=== PATIENT | male | born 1940 | race Caucasian/White ===

== ENCOUNTER 2021-09-21 12:15 | Emergency (ER) | payer MEDICARE, OTHER, SELFPAY ==
[2021-09-21 12:16] VITALS: BP 146/88; PULSE 112; RESP 16; TEMP 36.2; O2SAT 99; BMI 20.9
--- NOTE | 2021-09-21 13:15 | EX.ED.DYSGE1 ---
HPI History of Present Illness Chief Complaint: Abn Labs Detail of Chief Complaint: Low magnesium Informant: patient Narrative Narrative: Patient presents to the emergency department concern for low magnesium. Patient states he had blood work the other day that showed a magnesium of 0.8. He was advised by his cancer specialist to come to the emergency department to get a IV magnesium infusion. Patient states he receives and infusion of chemotherapy every 2 weeks that is known to lower magnesium and he receives magnesium infusion at the time of the chemotherapy. Patient otherwise has no complaints. He has had no muscle spasms or nausea or vomiting or abdominal pain or palpitations. Patient denies recent illness. Patient being treated for colon cancer. [facility] Medical History (Updated 09/21/21 @ 15:[address] Nessa Molina, ) GERD (gastroesophageal reflux disease) Malignant neoplasm of ascending colon Microcytic anemia Neuropathy Situational anxiety Home Medications Omeprazole [Prilosec] 40 mg PO DAILY 10/03/20 [History Last Taken Unknown] alogliptin 25 mg PO DAILY 10/03/20 [History Last Taken Unknown] amlodipine 10 mg PO DAILY 10/03/20 [History Last Taken Unknown] benazepril 20 mg PO DAILY 10/03/20 [History Last Taken Unknown] glimepiride 4 mg PO DAILY 10/03/20 [History Last Taken Unknown] lorazepam 1 mg PO DAILY 10/03/20 [History Last Taken Unknown] metformin 1,000 mg PO DAILY 10/03/20 [History Last Taken Unknown] ondansetron HCl 8 mg PO Q8H PRN PRN 10/11/20 [History Last Taken Unknown] Allergy/AdvReac Type Severity Reaction Status Date / Time oxaliplatin Allergy Shortness Verified 09/21/21 12:18 of breath Surgical History History of colectomy Social History Smoking Status: Never smoker ROS ROS ED Constitutional Constitutional ED: Reports systems reviewed and no addt'l complaints, except as documented; Denies body ache(s), change in weight or chills Eyes Eyes: Denies acute decrease in peripheral vision, change in vision, double vision or loss of vision ENT ENT ED: Reports none; Denies ear pain, lip swelling, loss taste/smell, neck pain, otalgia or sore throat Cardiovascular Cardiovascular: Reports none; Denies abdominal pain, chest pain with activity, leg edema, lightheadedness, palpitations, rapid heart rate or syncope Respiratory/Chest Respiratory/Chest: Reports none; Denies change in mental status, dry cough, dyspnea, hemoptysis, shortness of breath at rest or shortness of breath with exertion Gastrointestinal Gastrointestinal: Reports none; Denies abdominal pain, change in stool character, diarrhea, hematemesis, hematochezia, melena, rectal bleeding or vomiting Genitourinary Genitourinary ED: Reports none; Denies abdominal discomfort, anuria, dysuria, genital pain or polyuria Musculoskeletal Musculoskeletal: Reports none; Denies arthralgias, back pain, difficulty walking, extremity pain, muscle weakness or myalgias Integumentary Reports none; Denies abscess or rash Neurologic Neurologic: Reports none; Denies abnormal gait, confusion, focal weakness, frequent falls, headache(s), loss of vision, numbness, paresthesias, radicular pain, vertigo or weakness Psychiatric Psychiatric: Reports systems reviewed and no addt'l complaints, except as documented and none; Denies behavioral changes, confusion, difficulty concentrating, hallucinations, suicidal ideation, tactile hallucinations or visual hallucinations Endocrine Endocrinology: Denies none, cold intolerance, excessive sweating, fatigue or heat intolerance Hematologic/Lymphatic Hematologic/Lymphatic: Reports none; Denies anemia, easy bleeding or easy bruising Allergic/Immunologic Allergic/Immunologic ED: Denies as per HPI, none, lip swelling, mouth swelling, throat swelling, tongue swelling or hives EXAM Physical Exam Const Vital Signs: 09/21/21 12:16 09/21/21 12:55 09/21/21 14:28 Temperature 97.2 F L Temperature Source Temporal Pulse Rate 112 H 69 Respiratory Rate 16 15 Respiratory Effort Normal Non-Labored Respiratory Pattern Normal Blood Pressure 146/88 H 139/73 H Blood Pressure Mean 107 95 Pulse Ox 99 96 Oxygen Delivery Method Room Air Room Air Positive well nourished and well developed General Appearance ED: well developed and NAD HEENT Reports TM's clear and moist mucous membranes normocephalic and atraumatic; Negative for trauma or tenderness Tympanic Membrane ED: Yes TM's clear Eyes PERRL and EOMs intact bilaterally General Eye ED: Negative for pale conjunctiva or scleral icterus Neck no lymphadenopathy, supple and no JVD General: Negative for tenderness Chest Wall inspection of chest normal and palpation of chest normal Chest: Negative for tenderness Resp normal respiratory effort and clear to auscultation bilaterally Effort and Inspection: Negative for respiratory distress or pain with movement Auscultation: Negative for rhonchi, wheezes or diminished lung sounds Cardio regular rate, regular rhythm, S1 normal heart sound, S2 normal heart sound and no murmurs Peripheral Pulses: pulses 2+ throughout GI normal to inspection, nondistended, normoactive bowel sounds, soft to palpation, non-tender, non-distended and no masses Back/Spine no CVA tenderness and no thoracic nor lumbar tenderness Extremity normal to inspection General Extremety ED: Negative for edema General Extremity: Negative for edema Neuro oriented x3, CN's II-XII intact bilaterally, no sensory deficits noted and gait normal Sensorium / Orientation: awake, alert, oriented to person, oriented to place and oriented to time Motor Exam: strength 5/5 throughout and strength abnormal Psych mental status grossly normal Skin no rashes or lesions noted and no wounds MDM MDM MDM Narrative Medical decision making narrative: IV line established on arrival. Patient's magnesium noted to be 1.2. He was ordered 2 g of magnesium IV. Patient will be discharged to home and advised to follow-up with his primary care physician or oncologist to determine if oral magnesium would be indicated going forward as he continues his chemotherapy. Patient has been asymptomatic. Patient advised to return if palpitations, muscle cramping, vomiting or diarrhea, or condition should worsen anyway. Lab Data Labs: Laboratory Results - last 24 hr 09/21/21 13:30 Sodium 143 Potassium 3.6 Chloride 108 H Carbon Dioxide 26.0 Anion Gap 9 BUN 13 Creatinine 0.94 Estim Creat Clear Calc 59.85 Est GFR (MDRD) Af Amer 100 Est GFR (MDRD) Non-Af 82 BUN/Creatinine Ratio 13.8 Glucose 156 H Calcium 8.6 Magnesium 1.2 L Discharge Plan Triage Chief Complaint: Abn Labs ED Provider: Nessa Molina Dx/Rx/DC Orders Clinical Impression: Hypomagnesemia Instructions: Discharge Instructions for ... Prescriptions: No Action amlodipine 10 MG tablet 10 mg PO DAILY RF: 0 glimepiride 4 MG tablet 4 mg PO DAILY RF: 0 benazepril 20 MG tablet 20 mg PO DAILY RF: 0 lorazepam 1 MG tablet 1 mg PO DAILY RF: 0 metformin 1,000 MG tablet extended release 24hr 1,000 mg PO DAILY RF: 0 alogliptin 25 MG tablet 25 mg PO DAILY RF: 0 Omeprazole [Prilosec] 40 MG capsule 40 mg PO DAILY RF: 0 ondansetron HCl 8 MG tablet 8 mg PO Q8H PRN PRN (Reason: Nausea) RF: 0 Referrals: ROSALINDA ROB [Other] Activity Restrictions/Additional Instructions: Follow-up with primary care physician or oncologist to determine if oral magnesium would be indicated going forward as you continue your chemotherapy. Disposition Disposition: Home, Self Care
[2021-09-21 14:04] LABS: Anion Gap 9 (5-15); BUN 13 mg/dL (7-18); BUN/Creat Ratio 13.8 RATIO (10-20); Calcium,Total 8.6 mg/dL (8.5-10.1); Chloride 108 mmol/L (98-107); Creatinine, Serum 0.94 mg/dL (0.70-1.30); EST Glomerular Filtration Rate 82 mL/min (>60); Est Glom Filt Rate - Afr Amer 100 mL/min (>60); Estimated Creatinine Clearance 59.85 ml/min; Glucose 156 mg/dL (74-106); Magnesium 1.2 mg/dL (1.6-2.6); Potassium 3.6 mmol/L (3.5-5.1); Sodium Level 143 mmol/L (136-145)
[2021-09-21 14:28] VITALS: BP 139/73; PULSE 69; RESP 15; O2SAT 96
[2021-09-21 16:16] VITALS: BP 138/76; PULSE 79; RESP 15; O2SAT 96
[2021-09-21 17:57] VITALS: BP 135/69; PULSE 72; RESP 16; O2SAT 95
== END 2021-09-21 17:58 | disposition home or self-care (01) ==
PROVIDERS: Emergency Provider Emergency Medicine
DX: E83.42 Hypomagnesemia (principal); C18.2 Malignant neoplasm of ascending colon; D50.9 Iron deficiency anemia, unspecified; K21.9 Gastro-esophageal reflux disease without esophagitis; G62.9 Polyneuropathy, unspecified; Z79.84 Long term (current) use of oral hypoglycemic drugs; Z90.49 Acquired absence of other specified parts of digestive tract
CPT/HCPCS: 80048; 83735; 96360; 96361; 99283; A4216; J3475